=== PATIENT | female | born 1980 | race Caucasian/White ===

== ENCOUNTER 2017-10-11 15:13 | Observation (INO) | payer OTHER ==
[~2017-10-11 15:13] MED LIST: Lactated Ringer's 1,000 ML IV ONE
--- NOTE | 2017-10-11 15:34 | C.PDOC ---
History Of Present Illness 37 yo female , LNMP 07/17/17, was sent to ED by TRAINING OFFICER for further evaluation of vaginal bleeding. Pt reports, " had US yesterday at doctors office that showed empty uterus". After US, pt reports, developed vaginal spotting and today more is vaginal bleeding associated with cramping abdominal pain. Otherwise, pt denies fever, chills, headache, dizziness, CP, SOB, dyspnea , palpitation, V/D, back pain, UTI sx. Ambulate to ED for evaluation, not in any apparent distress. Time Seen by Provider: 10/11/17 15:15 Chief Complaint (Nursing): Female Genitourinary History Per: Patient Past Medical History Reviewed: Historical Data, Nursing Documentation, Vital Signs Vital Signs: Last Vital Signs Temp 98 F 10/11/17 15:16 Pulse 64 10/11/17 15:16 Resp 18 10/11/17 15:16 BP 99/63 L 10/11/17 15:16 Pulse Ox 100 10/11/17 16:46 - Medical History PMH: No Chronic Diseases Surgical History: No Surg Hx Family History: States: No Known Family Hx - Social History Hx Tobacco Use: No Hx Alcohol Use: No Hx Substance Use: No - Immunization History Hx Tetanus Toxoid Vaccination: No Hx Influenza Vaccination: Yes Hx Pneumococcal Vaccination: No Review Of Systems Except As Marked, All Systems Reviewed And Found Negative. Constitutional: Negative for: Fever, Chills Eyes: Negative for: Vision Change ENT: Negative for: Throat Pain Cardiovascular: Negative for: Chest Pain, Palpitations, Edema, Light Headedness Respiratory: Negative for: Cough, Shortness of Breath, Wheezing Gastrointestinal: Positive for: Abdominal Pain. Negative for: Nausea, Vomiting , Diarrhea Genitourinary: Positive for: Vaginal Bleeding Musculoskeletal: Negative for: Back Pain Skin: Negative for: Bruising Neurological: Negative for: Weakness, Numbness, Altered Mental Status, Headache , Dizziness Physical Exam - Physical Exam Appears: Well, No Acute Distress Skin: Normal Color, Warm, Dry Eye(s): bilateral: Normal Inspection, PERRL, EOMI Nose: Normal Throat: Normal Neck: Normal Cardiovascular: Rhythm Regular Respiratory: Normal Breath Sounds Gastrointestinal/Abdominal: Normal Exam Back: Normal Inspection Extremity: Normal ROM ED Course And Treatment - Laboratory Results Result Diagrams: 10/11/17 15:57 10/11/17 15:57 Lab Interpretation: Normal Urine POC: Positive O2 Sat by Pulse Oximetry: 100 Pulse Ox Interpretation: Normal Progress Note: Case discussed with . Recommend blood work and repeat Transvag US. At 16:50, recommend admission to [facility] for D&C. Pt aware and agrees with plan. Disposition - Disposition Disposition: HOSPITALIZED Disposition Time: 16:44 Condition: STABLE Forms: [facility] ([place]) - Clinical Impression Clinical Impression: Incomplete
[2017-10-11 16:14] LABS: BASO # 0.1 K/uL (0.0-0.2); BASO % 1.3 % (0.0-2.0); CALCIUM 8.8 mg/dl (8.6-10.4); EOS # 0.1 K/uL (0.0-0.7); EOS % 0.8 % (0.0-4.0); GFR AFRICAN-AMERICAN > 60; HEMATOCRIT 39.6 % (34.0-47.0); LYMPH % 20.2 % (20.0-40.0); MEAN CELL VOLUME 87.6 fL (81.0-99.0); MEAN CORPUSCULAR HEMOGLOBIN 29.2 pg (27.0-31.0); MEAN CORPUSCULAR HGB CONC 33.3 g/dL (33.0-37.0); MEAN PLATELET VOLUME 8.3 fL (7.2-11.7); MONO # 0.6 K/uL (0.0-0.8); MONO % 6.1 % (0.0-10.0); RED CELL DISTRIBUTION WIDTH 14.4 % (11.5-14.5); WHITE BLOOD COUNT 9.8 K/uL (4.8-10.8)
[2017-10-11 16:35] LABS: BLOOD UREA NITROGEN 9 mg/dL (7-17); CARBON DIOXIDE 22 mmol/L (22-30); CHLORIDE 98 mmol/L (98-107); GLUCOSE,RANDOM 80 mg/dL (65-105); POTASSIUM 4.8 mmol/L (3.6-5.2); SODIUM 133 mmol/L (132-148)
--- NOTE | 2017-10-11 17:10 | US ---
Pelvic ultrasound History: Vaginal bleeding. . Comparison: None available. Technique: Real-time sonography was performed through the pelvis utilizing transabdominal and transvaginal techniques. Findings: Uterus: 10.7 x 5.5 x 6.7 centimeters. Heterogeneous echotexture. Anteverted. Heterogeneous lesion seen within the mid uterus measuring 2.2 x 2.3 x 2.3 centimeters suggestive for a fibroid lesion. Suggestion of an intrauterine gestational sac which appears somewhat irregular shaped in appearance measuring up to 2.1 centimeters which would correspond to a gestational age of approximately 6 weeks and 4 days. No yolk sac identified. Suggestion of a possible somewhat irregular-shaped pole measuring up to 1.2 centimeters which would correspond to a gestational age of 7 weeks and 3 days. No heart rate identified on this scan. No free fluid in the pelvic cul-de-sac. Right ovary: 2.3 x 1.6 x 2.5 centimeters. Normal flow. Left ovary: 3.3 x 2.5 x 3.0 centimeters. Normal flow. Hypoechoic cyst measuring 2.2 x 1.8 x 1.7 centimeters. Impression: 1. Beta HCG level pending. 2. Suggestion of an intrauterine gestational sac which appears somewhat irregular shaped in appearance measuring up to 2.1 centimeters which would correspond to a gestational age of approximately 6 weeks and 4 days. No yolk sac identified. Suggestion of a possible somewhat irregular-shaped pole measuring up to 1.2 centimeters which would correspond to a gestational age of 7 weeks and 3 days. No heart rate identified on this scan. These findings are of uncertain clinical etiology and may represent a missed versus early . Continued interval followup may be helpful if clinically indicated. 3. Hypoechoic left ovarian cyst measuring 2.2 x 1.8 x 1.7 centimeters. 4. Heterogeneous lesion seen within the mid uterus measuring 2.2 x 2.3 x 2.3 centimeters suggestive for a fibroid lesion. Limited 1st trimester ultrasound for viability purposes only. Continued interval followup with serial ultrasound, serial HCG levels, and gynecological consultation would be helpful if clinically indicated.
[2017-10-11] MEDS ORDERED: Propofol 10 mg/ml Inj (20 ML) ONE (17:41)
[2017-10-11] MEDS ORDERED: HYDROmorphone 0.5 mg/0.5 ml ISec IVP PRN (17:45)
[2017-10-11 17:46] LABS: RBC URINE 23 /hpf (0-3); URINE BACTERIA OCC (<OCC); URINE BILIRUBIN NEGATIVE (NEGATIVE); URINE BLOOD 3+ (NEGATIVE); URINE COLOR Straw (YELLOW); URINE GLUCOSE (UA) NORMAL (Normal); URINE KETONE NEGATIVE (NEGATIVE); URINE LEUKOCYTE ESTERASE NEG Leu/uL (Negative); URINE PROTEIN NEGATIVE (NEGATIVE); URINE UROBILINOGEN NORMAL mg/dL (0.2-1.0); WBC URINE 2 /hpf (0-5)
[2017-10-11] MEDS ORDERED: cefOXitin IV 1 gm in Dextrose 0 GM/0 ML BAG IVPB ONE (17:46)
[2017-10-11] MEDS ORDERED: Oxytocin 10 Units/ml Inj ONE (17:46)
[2017-10-11] MEDS ORDERED: Silver Nitrate Topical - Stick ONE (18:26)
[2017-10-11] MEDS ORDERED: Lactated Ringer's 1,000 ML IV ONE (18:33)
[2017-10-11] MEDS ORDERED: Oxycodone/Acetaminophen 5/325 mg Tab PO PRN (18:36)
--- NOTE | 2017-10-11 18:39 | PCM.SURG1 ---
Surgeon's Initial Post Op Note - Surgeon's Notes Surgeon: Gilles Crook Speech And Drama Teacher: none Type of Anesthesia: General LMA Anesthesia Administered By: Dr EASON Pre-Operative Diagnosis: Incomplete Operative Findings: approximately 8-10 weeks ize uterus with moderate amount of products of conecption Post-Operative Diagnosis: same as preop diagnosis Operation Performed: Suction D&C Specimen/Specimens Removed: Products of conception Estimated Blood Loss: EBL {In ML}: 50 Blood Products Given: N/A Drains Used: No Drains Post-Op Condition: Good Date of Surgery/Procedure: 10/11/17 Time of Surgery/Procedure: 18:14 (Sugery start time)
[2017-10-11 19:47] VITALS: BP 101/70; PULSE 57; RESP 18; TEMP 97.4; O2SAT 100
--- NOTE | 2017-10-11 20:39 | CP.PCM.HP ---
History of Present Illness - History of Present Illness History of Present Illness: 37 yo female , LNMP 07/17/17 with c/o vaginal bleeidng. [facility] which showed ab empty gestational sac.. After US, pt reports, developed vaginal spotting and today more is vaginal bleeding associated with cramping abdominal pain. Patient states that she is experiencing a lot of pain and passing blood clots Otherwise, pt denies fever, chills, headache, dizziness, CP, SOB, dyspnea, palpitation, V/D, back pain, UTI sx. Present on Admission - Present on Admission Any Indicators Present on Admission: No Review of Systems - Review of Systems All systems: reviewed and no additional remarkable complaints except - Cardiovascular Cardiovascular: absent: Chest Pain - Respiratory Respiratory: absent: Cough, Dyspnea - Gastrointestinal Gastrointestinal: Abdominal Pain - Reproductive: Female Reproductive:Female: Amenorrhea, Abnormal Vaginal Bleeding - Musculoskeletal Musculoskeletal: absent: Abnormal Gait - Neurological Neurological: absent: Weakness - Psychiatric Psychiatric: absent: Anxiety - Endocrine Endocrine: absent: Fatigue, Palpitations Past Patient History - Past Social History Smoking Status: Never Smoked - CARDIAC Hx Cardiac Disorders: No - PULMONARY Hx Respiratory Disorders: No - NEUROLOGICAL Hx Neurological Disorder: No - RENAL Hx Chronic Kidney Disease: No - HEMATOLOGICAL/ONCOLOGICAL Hx Blood Disorders: No - GASTROINTESTINAL Hx Gastrointestinal Disorders: No - GENITOURINARY/GYNECOLOGICAL Hx Genitourinary Disorders: No LMP:: 07/17/2017 : 2 Para: 0 Termination of : 1 - PSYCHIATRIC Hx Psychophysiologic Disorder: No Hx Substance Use: No - SURGICAL HISTORY Hx Surgeries: Yes Hx Dilation and Curettage: Yes - ANESTHESIA Hx Anesthesia: Yes Hx Anesthesia Reactions: No Meds Allergies/Adverse Reactions: Allergies Allergy/AdvReac Type Severity Reaction Status Date / Time No Known Allergies Allergy Verified 10/11/17 15:18 Physical Exam - Constitutional Appears: Well, No Acute Distress - Respiratory Exam Respiratory Exam: Clear to Auscultation Bilateral, NORMAL BREATHING PATTERN - Cardiovascular Exam Cardiovascular Exam: REGULAR RHYTHM - GI/Abdominal Exam GI & Abdominal Exam: Normal Bowel Sounds, Soft. absent: Tenderness - Exam Speculum exam: Vaginal Bleeding - Extremities Exam Extremities exam: Negative for: calf tenderness - Back Exam Back exam: absent: CVA tenderness (L), CVA tenderness (R) - Neurological Exam Neurological exam: Alert, Oriented x3 - Psychiatric Exam Psychiatric exam: Normal Affect, Normal Mood - Skin Skin Exam: Normal Color Results - Vital Signs Recent Vital Signs: Last Vital Signs Temp 97.4 F L 10/11/17 19:42 Pulse 57 L 10/11/17 19:42 Resp 18 10/11/17 19:42 BP 101/70 10/11/17 19:42 Pulse Ox 100 10/11/17 19:42 - Labs Result Diagrams: 10/11/17 15:57 10/11/17 15:57 Labs: Laboratory Results - last 24 hr 10/11/17 10/11/17 10/11/17 15:57 15:57 15:57 WBC 9.8 RBC 4.52 Hgb 13.2 Hct 39.6 MCV 87.6 MCH 29.2 MCHC 33.3 RDW 14.4 Plt Count 330 MPV 8.3 Neut % (Auto) 71.6 Lymph % (Auto) 20.2 [place] % (Auto) 6.1 Eos % (Auto) 0.8 Baso % (Auto) 1.3 Neut # 7.0 Lymph # 2.0 [place] # 0.6 Eos # 0.1 Baso # 0.1 PT 11.6 INR 1.0 APTT 32 Sodium 133 Potassium 4.8 Chloride 98 Carbon Dioxide 22 Anion Gap 19 BUN 9 Creatinine 0.7 Est GFR ( Amer) > 60 Est GFR (Non-Af Amer) > 60 Random Glucose 80 Calcium 8.8 Beta HCG, Quant 5759.70 Urine Color Urine Clarity Urine pH Ur Specific [place] Urine Protein Urine Glucose (UA) Urine Ketones Urine Blood Urine Nitrate Urine Bilirubin Urine Urobilinogen Ur Leukocyte Esterase Urine WBC (Auto) Urine RBC (Auto) Ur Squamous Epith Cells Urine Bacteria Blood Type Antibody Screen 10/11/17 10/11/17 16:55 17:22 WBC RBC Hgb Hct MCV MCH MCHC RDW Plt Count MPV Neut % (Auto) Lymph % (Auto) [place] % (Auto) Eos % (Auto) Baso % (Auto) Neut # Lymph # [place] # Eos # Baso # PT INR APTT Sodium Potassium Chloride Carbon Dioxide Anion Gap BUN Creatinine Est GFR ( Amer) Est GFR (Non-Af Amer) Random Glucose Calcium Beta HCG, Quant Urine Color Straw Urine Clarity Clear Urine pH 6.0 Ur Specific [place] 1.003 Urine Protein Negative Urine Glucose (UA) Normal Urine Ketones Negative Urine Blood 3+ H Urine Nitrate Negative Urine Bilirubin Negative Urine Urobilinogen Normal Ur Leukocyte Esterase Neg Urine WBC (Auto) 2 Urine RBC (Auto) 23 H Ur Squamous Epith Cells < 1 Urine Bacteria Occ H Blood Type B POSITIVE Antibody Screen Negative Assessment & Plan (1) Incomplete Assessment and Plan: Patient s/p ultrasound today.uterus with products fo conception.In complete -patient to OR for D&C -Informed consent obtaiend and signed - Status: Acute
--- NOTE | 2017-10-12 00:38 | OP ---
PROCEDURE DATE: 10/11/2017 PREOPERATIVE DIAGNOSIS: Incomplete . POSTOPERATIVE DIAGNOSIS: Incomplete . PROCEDURE PERFORMED: Suction D and C. SURGEON: Gilles Crook MD FIRE ALARM MECHANIC: None. TYPE OF ANESTHESIA: General LMA. ANESTHESIOLOGIST: Dr. Persaud. SPECIMEN: Products of conception. FINDINGS: Exam under anesthesia reveals an approximately 8- to 10-week sized anteverted uterus; on suction D and C, moderate amount of products of conception noted. ESTIMATED BLOOD LOSS FROM THE PROCEDURE: 50 mL. DESCRIPTION OF PROCEDURE: After informed consent was obtained, the patient was taken to the operating room and placed in dorsal supine position. General anesthesia was induced and LMA was placed by the Anesthesia team. She was thereafter placed in dorsal lithotomy position, prepped and draped in the usual sterile manner. The [place] catheter was straight cath'ed to empty the bladder. The sterile speculum was then placed into the vagina and the anterior lip of the cervix was grasped with a single-toothed tenaculum. The cervix, at this point, was noted to already be dilated and some products of conception was grasped using forceps, which were seen at the cervical os. At this point, a size 7-mm straight suction tip was introduced into the patient's uterus and it was hooked up to the suction machine and the suction machine was turned on and the products of conception was suctioned out. Three passes were done until clear frothy blood was noted in the suction tubing. Sharp curettage was thereafter performed until a gritty sensation was felt. The tenaculum was thereafter removed from the anterior lip of the cervix. The tenaculum site was noted to be bleeding and therefore silver nitrate was applied for cautery. The tenaculum site was noted to be hemostatic after that. The speculum was removed. The patient was taken out of the lithotomy position and the airway removed and she was extubated and taken to the recovery room in stable condition. The sponge and instrument count was correct as reported to me at the end of the procedure. Please note that the specimens were sent to Pathology were products of conception and also for chromosomal analysis. Gilles Crook MD
== END 2017-10-11 21:10 | disposition home or self-care (01) ==
LOC: C.4M 15:13 → C.ER 15:13 → C.SDS 16:46 → C.4M 16:46
PROVIDERS: ADMIT Student in an Organized Health Care Education/Training Program; ATTEND Student in an Organized Health Care Education/Training Program
DX: O03.4 Incomplete spontaneous abortion without complication (principal)
CPT/HCPCS: 59812; 76805; 76817; 80048; 81001; 84702; 85025; 85610; 85730; 86850; 86900; 88233; 88262; 88305; 99285; G0378; J1885; J2405; J2704; J3010; J7120